=== PATIENT | female | born 2000 | race Caucasian/White ===

== ENCOUNTER 2022-08-28 16:13 | Outpatient (CLI) | payer OTHER, SELFPAY ==
[2022-08-28 17:37] LABS: Cholesterol* 230 mg/dL (90-199); Triglycerides* 99 mg/dL (40-149)
[2022-08-28 17:55] LABS: HDL Cholesterol* 142 mg/dL (>=50); LDL Cholesterol Calculated 68 mg/dL (<100)
[2022-08-28 19:18] LABS: Chlamydia DNA Amplified* NOT DETECTED (No Detected); GC DNA Amplified* NOT DETECTED (No Detected)
== END 2022-08-28 16:14 | disposition home or self-care (01) ==
PROVIDERS: PCP Nurse Practitioner Family; Visit Provider Registered Nurse
DX: Z01.419 Encounter for gynecological examination (general) (routine) without abnormal findings (principal); N39.0 Urinary tract infection, site not specified; Z11.3 Encounter for screening for infections with a predominantly sexual mode of transmission; N93.9 Abnormal uterine and vaginal bleeding, unspecified
CPT/HCPCS: 80061; 87491; 87591

== ENCOUNTER 2024-08-24 13:08 | Outpatient (CLI) | payer BC, SELFPAY | END 2024-08-24 13:09 | disposition home or self-care (01) | LOC: NFLDREF 13:09 | PROVIDERS: PCP Nurse Practitioner Family; Visit Provider Obstetrics & Gynecology | DX: Z12.4 Encounter for screening for malignant neoplasm of cervix (principal) | CPT/HCPCS: 87624; 87625; 88141; 88142 ==